=== PATIENT | female | born 1990 | race Two or more races ===

== ENCOUNTER → 2018-03-25 12:29 | Outpatient (CLI) | payer OTHER | END | disposition home or self-care (01) | LOC: LAB 12:29 | DX: E78.2 Mixed hyperlipidemia (principal); E11.3413 Type 2 diabetes mellitus with severe nonproliferative diabetic retinopathy with macular edema, bilateral ==

== ENCOUNTER 2025-04-06 22:10 | Emergency (ER) | payer OTHER ==
[~2025-04-06] VITALS: Ht 177.8 cm; Wt 131.5 kg
[2025-04-06] MEDS ORDERED: MOUNJARO5 MG/0.5 M SQ (22:35)
[2025-04-07] MEDS ORDERED: KETOROLAC TROMETHAMINE 10 MG TABLET PO STA (00:39)
[2025-04-07] MEDS ORDERED: NORFLEX100MG PO (01:53)
[2025-04-07] MEDS ORDERED: KETO10TA2 PO (01:53)
== END 2025-04-07 02:18 ==
LOC: ER 22:38
DX: S00.93XA Contusion of unspecified part of head, initial encounter (principal); S80.02XA Contusion of left knee, initial encounter; S80.01XA Contusion of right knee, initial encounter; W18.39XA Other fall on same level, initial encounter; Y93.89 Activity, other specified; Y92.89 Other specified places as the place of occurrence of the external cause; Y99.9 Unspecified external cause status